=== PATIENT | female | born 1940 | race Caucasian/White ===

== ENCOUNTER → 2016-10-26 | Outpatient (CLI) | payer MEDICARE, OTHER ==
[2016-10-26 12:48] LABS: ANION GAP 13.4 MEQ/L (3-15)
== END ==
LOC: LAB 12:09
PROVIDERS: ATTEND Family Medicine
DX: E10.65 Type 1 diabetes mellitus with hyperglycemia (principal); R79.89 Other specified abnormal findings of blood chemistry
CPT/HCPCS: 36415; 80048; 83036

== ENCOUNTER → 2016-11-05 | Outpatient (CLI) | payer MEDICARE, OTHER | LOC: RAD 07:44 | PROVIDERS: ATTEND Internal Medicine Hematology & Oncology | DX: C34.92 Malignant neoplasm of unspecified part of left bronchus or lung (principal); C50.212 Malignant neoplasm of upper-inner quadrant of left female breast | CPT/HCPCS: 71260; Q9967 ==